=== PATIENT | male | born 1970 | race Caucasian/White ===

== ENCOUNTER 2019-02-24 16:22 | Emergency (ER) | payer OTHER ==
[2019-02-24 16:47] VITALS: BP 147/83; PULSE 63; TEMP 98.5; BMI 34.7
--- NOTE | 2019-02-24 16:51 | PDOC ---
Rapid Medical Evaluation Chief Complaint: HIV Testing Time Seen by Provider: 02/24/19 16:49 Medical Evaluation: Allergies Allergy/AdvReac Type Severity Reaction Status Date / Time No Known Allergies Allergy Verified 02/24/19 16:45 Vital Signs Temp Pulse Resp BP Pulse Ox 98.5 F 63 16 147/83 98 02/24/19 16:45 02/24/19 16:45 02/24/19 16:45 02/24/19 16:45 02/24/19 16:45 02/24/19 16:49 I have performed a brief in-person evaluation of this patient. The patient presents with a chief complaint of:here to be tested for trichomonas as dx w/ same today by her [employer]. Pt states he has only been with sexually. No dysuria, penile dc, testes pain or swelling Pertinent physical exam findings:stable I have ordered the following:genital cx, ua The patient will proceed to the ED for further evaluation. 02/24/19 16:50 Discharge Disposition - Diagnosis Concern about STD in male without diagnosis - Referrals - Patient Instructions - Post Discharge Activity
--- NOTE | 2019-02-24 21:11 | PDOC ---
History of Present Illness - General Chief Complaint: HIV Testing Stated Complaint: POSSIBLE INFECTION Time Seen by Provider: 02/24/19 16:49 History Source: Patient Exam Limitations: No Limitations Past History - Past Medical History Allergies/Adverse Reactions: Allergies Allergy/AdvReac Type Severity Reaction Status Date / Time No Known Allergies Allergy Verified 02/24/19 16:45 COPD: No - Immunization History Immunization Up to Date: Yes - Psycho Social/Smoking Cessation Hx Smoking History: Never smoked Hx Alcohol Use: No Drug/Substance Use Hx: No *Physical Exam - Vital Signs Last Vital Signs Temp Pulse Resp BP Pulse Ox 98.5 F 63 16 147/83 98 02/24/19 16:45 02/24/19 16:45 02/24/19 16:45 02/24/19 16:45 02/24/19 16:45 - Physical Exam General Appearance: No: Apparent Distress Respiratory/Chest: positive: Lungs Clear, Normal Breath Sounds. negative: Respiratory Distress Cardiovascular: positive: Regular Rhythm, Regular Rate, S1, S2. negative: Murmur Gastrointestinal/Abdominal: positive: Normal Bowel Sounds, Soft. negative: Tender, Distended, Guarding, Rebound Neurologic: positive: Alert Medical Decision Making - Medical Decision Making 49 y/o M with no sig pmh presents for STD testing. Patient denies any complaints. Patient's recently found to be positive for trich and wanted him to get tested as well. Patient otherwise denies fever, abd pain, vomiting, penile drainage, rash, testicular pain G/C/Trich testing sent Will be called re: results 02/24/19 21:09 Discharge - Discharge Information Problems reviewed: Yes Clinical Impression/Diagnosis: Concern about STD in male without diagnosis Condition: Stable Disposition: HOME - Admission No - Additional Discharge Information Prescription Drug Monitoring Program (I-STOP) results: I-STOP not reviewed - Follow up/Referral Referrals: ON STAFF,NOT [Primary Care Provider] - - Patient Discharge Instructions Additional Instructions: Thank you for choosing [facility]. It was a pleasure taking care of you. You will be called regarding results Refrain from intercourse x 1 week Return to the Emergency Department if your symptoms worsen or persist or have other concerning symptoms. - Post Discharge Activity
== END 2019-02-24 21:18 | disposition home or self-care (01) ==
LOC: JERFT 16:22
DX: Z11.3 Encounter for screening for infections with a predominantly sexual mode of transmission (principal)
CPT/HCPCS: 36415; 87491; 87591; 87661; 99282-25